=== PATIENT | female | born 1945 | race Caucasian/White ===

== ENCOUNTER → 2020-11-23 | Outpatient (CLI) | payer MEDICARE, OTHER ==
--- NOTE | 2020-11-23 17:27 | RAD ---
EXAM: Pelvis and right hip, 3 views. HISTORY: Pain. COMPARISON: None. FINDINGS: A frontal view the pelvis and 2 views the right hip are obtained. There is no fracture, dis location or subluxation. There is degenerative change involving the lower lumbar spine. There are a f ew pelvic phleboliths. IMPRESSION: No acute osseous finding. Electronically signed by: Amber Salgado MD (11/23/2020 5:25 PM) [email or web address]
--- NOTE | 2020-11-23 17:29 | RAD ---
EXAM: Lumbar spine, 5 views. HISTORY: Pain. COMPARISON: None. FINDINGS: 5 views lumbar spine are obtained. There is lumbar dextrosclerosis centered at L2. 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 There is slight retrolisthesis at the upper lumbar levels. There is multileve l endplate remodeling with disc space narrowing and osteophytosis. This is predominantly at T12-L1 an d the left aspects of L1-L2 and L2-L3. This corresponds with the levels of maximum scoliotic concavit y. There is multilevel facet arthropathy. IMPRESSION: 1. Lumbar scoliosis. 2. Multilevel degenerative change, primarily at the upper lumbar levels and thoracolumbar lumbar junc tion. 3. No acute osseous finding. Electronically signed by: Amber Salgado MD (11/23/2020 5:26 PM) [email or web address]
== END ==
LOC: PMG 15:40
PROVIDERS: ATTEND Physician Assistant Medical
DX: M47.26 Other spondylosis with radiculopathy, lumbar region (principal); M48.061 Spinal stenosis, lumbar region without neurogenic claudication; M47.814 Spondylosis without myelopathy or radiculopathy, thoracic region; I87.8 Other specified disorders of veins; M41.86 Other forms of scoliosis, lumbar region; M25.78 Osteophyte, vertebrae; M12.88 Other specific arthropathies, not elsewhere classified, other specified site; M53.86 Other specified dorsopathies, lumbar region
CPT/HCPCS: 72110; 73502